=== PATIENT | female | born 1995 | race Two or more races ===

== ENCOUNTER 2022-08-16 22:50 | Emergency (ER) | payer MEDICAID ==
[~2022-08-16] VITALS: Ht 157.5 cm; Wt 77.0 kg
[2022-08-16 23:04] VITALS: TEMP 98.9
[2022-08-17] MEDS ORDERED: KETOROLAC TROMETHAMINE 30 MG/ML VIAL IVP ONE (02:00)
[2022-08-17] MEDS ORDERED: DIPHENOXYLATE/ATROP 2.5-0.025 MG TABLET PO ONE (02:00)
[2022-08-17] MEDS ORDERED: ACETAMINOPHEN 500 MG TABLET PO ONE (02:00)
[2022-08-17] MEDS ORDERED: SODIUM CHLORIDE 0.9% 1,000 ML IV ONE (02:00)
[2022-08-17] MEDS ORDERED: MORPHINE SULFATE 4 MG/ML SYRINGE IVP ONE (02:00)
[2022-08-17] MEDS ORDERED: ONDANSETRON HCL 4 MG/2 ML VIAL IVP ONE (02:00)
[2022-08-17 02:10] LABS: BASOPHILS % (AUTO) 0.6 % (0.0-2.0); HEMATOCRIT 29.9 % (36-46); HEMOGLOBIN 9.5 g/dL (12.0-16.0); LYMPHOCYTES # (AUTO) 3.2 K/uL (1.0-4.8); LYMPHOCYTES % (AUTO) 27.7 % (22.0-44.0); MEAN CORPUSCULAR HEMOGLOBIN 22.6 pg (26.0-34.0); MEAN CORPUSCULAR HGB CONC 31.8 G/dL (31.0-37.0); MEAN CORPUSCULAR VOLUME 71 fL (80-100); MONOCYTES # (AUTO) 0.7 K/uL (0.1-1.0); MONOCYTES % (AUTO) 5.7 % (2.0-9.0); NEUTROPHILS # (AUTO) 7.6 K/uL (1.8-7.7); PLATELET COUNT (AUTO) 511 K/uL (150-450); RED BLOOD CELL COUNT(AUTO) 4.21 MIL/uL (4.00-5.20); RED CELL DISTRIBUTION WIDTH 17.6 % (11.5-14.5)
[2022-08-17 02:18] LABS: ANION GAP 10 mmol/L (8-16); CARBON DIOXIDE 26 mmol/L (22-29); CHLORIDE 102 mmol/L (98-107); CREATININE 0.89 mg/dL (0.60-1.30); GLUCOSE,RANDOM 101 mg/dL (70-110); POTASSIUM 3.8 mmol/L (3.5-5.1); SODIUM SERUM 138 mmol/L (136-145)
[2022-08-17 02:19] LABS: GLOMERULAR FILTR. RATE CALC > 60 mL/min (>60)
[2022-08-17 02:30] LABS: ALANINE AMINOTRANSFERASE 14 U/L (12-78); ALBUMIN 3.6 g/dL (3.4-5.0); ALKALINE PHOSPHATASE 94 U/L (46-116); ASPARTATE AMINOTRANSFERASE 8 U/L (15-37); BILIRUBIN,TOTAL 0.2 mg/dL (0.1-1.0); HCG,QUANTITATIVE 929 mIU/mL (0-6); LIPASE 42 U/L (73-393); TOTAL PROTEIN, SERUM 7.9 g/dL (6.4-8.2)
[2022-08-17 03:19] VITALS: BP 100/53; PULSE 75; RESP 12
[2022-08-17] MEDS ORDERED: METR500 PO (03:42)
[2022-08-17] MEDS ORDERED: CEPH-558 PO (03:42)
[2022-08-17] MEDS ORDERED: ONDA-104 PO (03:42)
[2022-08-17] MEDS ORDERED: MICO45CR76 VG (03:42)
[2022-08-17] MEDS ORDERED: ACET-66 PO (03:42)
[2022-08-17] MEDS ORDERED: DIPH-654 PO (03:42)
== END 2022-08-17 07:09 | disposition home or self-care (01) ==
LOC: EMS 22:54
DX: K52.9 Noninfective gastroenteritis and colitis, unspecified (principal); R10.2 Pelvic and perineal pain; Z87.59 Personal history of other complications of pregnancy, childbirth and the puerperium; Z90.49 Acquired absence of other specified parts of digestive tract
CPT/HCPCS: 99285; 80053; 83690; 84702; 85025; 36415; 96374; 76856; 96375; 96361; J1885; J2270; J2405; J7030

== ENCOUNTER 2023-01-30 22:50 | Emergency (ER) | payer OTHER ==
[~2023-01-30] VITALS: Ht 157.5 cm; Wt 68.0 kg
[~2023-01-30 22:50] MED LIST: AMOX1TAB15 PO; ESOM20CA31 PO; FERR325T27 PO
[2023-01-30 22:59] VITALS: BP 107/64; PULSE 67; RESP 16; TEMP 97.6
[2023-01-30 23:12] LABS: COVID AG,FIA SOURCE NASAL SWAB
[2023-01-30 23:40] LABS: INFLUENZA TYPE A NEGATIVE FOR TYPE A (NEGATIVE); INFLUENZA TYPE B NEGATIVE FOR TYPE B (NEGATIVE); SARS-COV2 (COVID) ANTIGEN,FIA Negative (Negative)
[2023-01-31] MEDS ORDERED: DiphenhydrAMINE HCL 25 MG CAPSULE PO ONE (01:15)
[2023-01-31] MEDS ORDERED: PredniSONE 20 MG TABLET PO ONE (01:15)
[2023-01-31] MEDS ORDERED: DIPH25TA20 PO (01:27)
[2023-01-31] MEDS ORDERED: PRED-554 PO (01:27)
== END 2023-01-31 01:35 | disposition home or self-care (01) ==
LOC: EMS 22:53
DX: L50.9 Urticaria, unspecified (principal); Z90.49 Acquired absence of other specified parts of digestive tract; Z20.822 Contact with and (suspected) exposure to COVID-19
CPT/HCPCS: 99283; 87426; 87804; J7512

== ENCOUNTER 2023-07-27 21:21 | Emergency (ER) | payer OTHER ==
[~2023-07-27] VITALS: Ht 157.5 cm; Wt 74.5 kg
[~2023-07-27 21:21] MED LIST changes: -AMOX1TAB15 PO; +DIPH25TA20 PO; -ESOM20CA31 PO; -FERR325T27 PO; +PRED-554 PO
[2023-07-27 21:42] VITALS: BP 138/74; PULSE 72; RESP 17; TEMP 98.9
[2023-07-27 22:03] LABS: BASOPHILS % (AUTO) 0.8 % (0.0-2.0); EOSINOPHILS % (AUTO) 1.3 % (1.0-6.0); HEMATOCRIT 30.4 % (36-46); HEMOGLOBIN 9.7 g/dL (12.0-16.0); LYMPHOCYTES # (AUTO) 3.3 K/uL (1.0-4.8); LYMPHOCYTES % (AUTO) 33.7 % (22.0-44.0); MEAN CORPUSCULAR HEMOGLOBIN 21.4 pg (26.0-34.0); MEAN CORPUSCULAR VOLUME 67 fL (80-100); MONOCYTES # (AUTO) 0.6 K/uL (0.1-1.0); MONOCYTES % (AUTO) 6.3 % (2.0-9.0); NEUTROPHILS # (AUTO) 5.6 K/uL (1.8-7.7); NEUTROPHILS % (AUTO) 57.9 % (40.0-70.0); PLATELET COUNT (AUTO) 372 K/uL (150-450); RED BLOOD CELL COUNT(AUTO) 4.55 MIL/uL (4.00-5.20); RED CELL DISTRIBUTION WIDTH 18.7 % (11.5-14.5); WHITE BLOOD COUNT (AUTO) 9.7 K/uL (4.5-11.0)
[2023-07-27 22:10] LABS: RBC MORPHOLOGY COMMENT ABNORMAL RBC MORPH
[2023-07-27 22:11] LABS: ANION GAP 9 mmol/L (8-16); CALCIUM, TOTAL 9.3 mg/dL (8.8-10.5); CARBON DIOXIDE 24 mmol/L (22-29); CHLORIDE 104 mmol/L (98-107); CREATININE 0.87 mg/dL (0.60-1.30); GLOMERULAR FILTR. RATE CALC > 60 mL/min (>60); GLUCOSE,RANDOM 103 mg/dL (70-110); POTASSIUM 3.7 mmol/L (3.5-5.1); SODIUM SERUM 137 mmol/L (136-145); UREA NITROGEN, BLOOD 12 mg/dL (7-18)
[2023-07-27 22:39] LABS: HCG,QUANTITATIVE 22384 mIU/mL (0-6)
== END 2023-07-27 23:52 | disposition home or self-care (01) ==
LOC: EMS 21:21
DX: O46.91 Antepartum hemorrhage, unspecified, first trimester (principal); Z90.49 Acquired absence of other specified parts of digestive tract; Z3A.01 Less than 8 weeks gestation of pregnancy
CPT/HCPCS: 76801; 80048; 84702; 85025; 86901; 99284